=== PATIENT | female | born 2000 | race Caucasian/White ===

== ENCOUNTER 2025-05-23 13:20 | Outpatient (OUT) | payer OTHER, SELFPAY ==
--- OUTSIDE RECORDS SUMMARY | 2025-05-10 12:30 | XMS_ITS | Encounter Summary ---
Author Organization [facility] Address [address] [place] [address] Care Team Providers Care Highway Patrol Pilot Name Role Phone Bhanu Puentes DO Primary Care Provider [phone] Encounter Details DateTypeDepartmentCare Team (Latest Contact Info)Hasfqmewmbc55/16/2025 12:30 PM EDTAncillary Procedure [facility] [address] [place] [address] [place] [address] Missed menses; Positive urine test ([facility]) Social History Tobacco UseTypesPacks/DayYears UsedDateSmoking Tobacco: NeverSmokeless Tobacco: NeverAlcohol UseStandard Drinks/WeekCommentsYes0 (1 standard drink = 0.6 oz pure alcohol)[id number] Health LiteracyAnswerDate RecordedHow often do you need to have someone help you when you read instructions, pamphlets, or other written material from your doctor or pharmacy?Never11/02/2024Social Connection and Isolation PanelAnswerDate RecordedIn a typical week, how many times do you talk on the phone with family, friends, or neighbors?More than three times a week 11/02/2024How often do you get together with friends or relatives?Three times a week11/02/2024How often do you attend baptism or latter day services?1 to 4 times per year11/02/2024Do you belong to any clubs or organizations such as baptism groups, unions, fraternal or athletic groups, or school groups?No11/02/2024How often do you attend meetings of the clubs or organizations you belong to?Never 11/02/2024re you , , , , never , or living with a partner?Olgwplz2911/02/2024UDIT-CAnswerDate RecordedQ1: How often do you have a drink containing alcohol?2-4 times a month11/02/2024Q2: How many drinks containing alcohol do you have on a typical day when you are drinking?1 or Q3: How often do you have six or more drinks on one occasion?Never 11/02/2024Overall Financial Resource Strain (CARDIA)AnswerDate RecordedHow hard is it for you to pay for the very basics like food, housing, medical care, and heating?Not very hard11/02/2024PHQ-2AnswerDate RecordedPatient Health Questionnaire-2 Pejhl737[facility] [place] of Occupational Health - Occupational Stress QuestionnaireAnswerDate RecordedDo you feel stress - tense, restless, nervous, or anxious, or unable to sleep at night because yourmind is troubled all the time - these days?To some jtynkd4111/02/2024Exercise Vital Sign AnswerDate RecordedOn average, how many days per week do you engage in moderate to strenuous exercise (like a brisk walk)?2 days11/02/2024On average, how many minutes do you engage in exercise at this level?20 min11/02/2024Hunger Vital SignAnswerDate RecordedWithin the past 12 months, you worried that your food would run out before you got the money to buymore.Never true11/02/2024Within the past 12 months, the food you bought just didn't last and you didn't have money to get more.Never true11/02/2024PRAPARE - TransportationAnswerDate RecordedIn the past 12 months, has lack of transportation kept you from medical appointments or from getting medications?No11/02/2024In the past 12 months, has lack of transportation kept you from meetings, work, or from getting things needed for daily living?No11/02/2024Housing Stability Vital SignAnswerDate RecordedIn the last 12 months, was there a time when you were not able to pay the mortgage or rent on time?No11/02/2024In the past 12 months, how many times have you moved where you were living?004/10/2025At any time in the past 12 months, were you homeless or living in a usp (including now)?No11/02/2024 Estimated Date of LvwraqojOqmjtrcgGuo96/27/2026ased on last menstrual period of 03/14/2025Sex and Gender InformationValueDate RecordedSex Assigned at GvhfqDonoig95/18/2023 3:01 PM EDTLegal OtsZoktcm61/15/2023 6:48 PM EDTGender PgnigcuhHdwoej30/18/2023 3:01 PM EDTSexual OrientationNot on filedocumented as of this encounter Plan of Treatment DateTypeDepartmentCare Team (Latest Contact Info)Yxbnwvpgpbk81/19/2025 3:20 PM ESTRoutine [facility] [address] [place] [phone] Christiano Fuentes DO [address] [place], [place] [id number] 11/28/2025 3:00 PM EDTOffice Visit [facility] [address] [place] [address] Ludivina Diez DO [address] [place] [address] documented as of this encounter Procedures Procedure NamePriorityDate/TimeAssociated DiagnosisCommentsUS OB TRANSVAGINAL Tlzkyhk3705/10/2025 12:47 PM EDT Missed menses Positive urine test ([facility]) documented in this encounter Results * US OB transvaginal (05/10/2025 12:47 PM EDT)Anatomical RegionLaterality ModalityBodyUltrasoundSpecimen (Source)Anatomical Location / Laterality Collection Method / VolumeCollection TimeReceived Time05/10/2025 1:33 PM EDT Impressions 05/10/2025 2:03 PM EDT Findings consistent with a live intrauterine gestation, current sonographic age of 8 weeks and 1 days resulting in an estimated date of delivery of December 19, 2025. TRANSCRIBED BY: ? ELECTRONICALLY SIGNED BY: Fermin Bae MD Narrative 05/10/2025 2:03 PM EDT FINDINGS: A single intrauterine gestational sac is present. ??No subchorionic hemorrhage. ??A single pole is present. Normal heart rate at 179 beats per minute. ??Yolk sac also is seen. ?? Current sonographic age is 8 weeks and 1 days based on the crown-rump length measurement of 1.7 cm. ??Based on this age, current estimated date of delivery is December 19, 2025. ?? No pelvic fluid or adnexal mass present. ??Closed cervix. Right ovarian 3.5 x 4.5 x 4.5 cm cyst occupies much of the majority of the right ovary (presumed corpus luteum cyst) Procedure Note Fermin Bae MD - 05/10/2025 FINDINGS: A single intrauterine gestational sac is present. No subchorionichemorrhage. A single pole is present. Normal heart rate at179 beats per minute. Yolk sac also is seen. Current sonographic age is8 weeks and 1 days based on the crown-rump length measurement of 1.7 cm.Based on this age, current estimated date of delivery is December 19, 2025.No pelvic fluid or adnexal mass present. Closed cervix. Right ovarian 3.5 x 4.5 x 4.5 cm cyst occupies much of the majority of theright ovary (presumed corpus luteum cyst) IMPRESSION: Findings consistent with a live intrauterine gestation, currentsonographic age of 8 weeks and 1 days resulting in an estimated date ofdelivery of December 19, 2025. TRANSCRIBED BY: ELECTRONICALLY SIGNED BY: Fermin Bae MD Authorizing ProviderResult TypeResult StatusCorey Gina DOIMG OB US PROCEDURES Final Result documented in this encounter Visit Diagnoses Diagnosis Missed menses Positive urine test ([facility]) documented in this encounter Care Teams Team MemberRelationshipSpecialtyStart DateEnd Date Bhanu Puentes DO [address] [place] [address] PCP - GeneralFamily Medicine12/01/22documented as of this encounter
--- OUTSIDE RECORDS SUMMARY | 2025-05-10 13:00 | XMS_ITS | Encounter Summary ---
Author Organization [facility] Address [address] [place] [address] Care Team Providers Care Supervisor Lime Name Role Phone Bhanu Puentes DO Primary Care Provider [phone] Reason for Visit * ReasonCommentsAmenorrhea Encounter Details DateTypeDepartmentCare Team (Latest Contact Info)Snmvwauoqbm55/16/2025 1:00 PM EDTInitial [facility] [address] [place] [address] GA: 8w1d Social History Tobacco UseTypesPacks/DayYears UsedDateSmoking Tobacco: NeverSmokeless Tobacco: NeverAlcohol UseStandard Drinks/WeekCommentsYes0 (1 standard drink = 0.6 oz pure alcohol)[id number] Health LiteracyAnswerDate RecordedHow often do you need [...] times a week11/02/2024How often do you attend pentecostal or christianity services?1 to 4 times per year11/02/2024Do you belong to any clubs or organizations such as pentecostal groups, unions, fraternal or athletic groups, or school groups?No11/02/2024How often do you attend meetings of the clubs or organizations you belong to?Never 11/02/2024re you , , , , never , or living with a partner?Vmmjvdz3711/02/2024UDIT-CAnswerDate RecordedQ1: How often do you have a [...] and heating?Not very hard11/02/2024PHQ-2AnswerDate RecordedPatient Health Questionnaire-2 Xxugv629[facility] [place] of Occupational Health - Occupational Stress QuestionnaireAnswerDate RecordedDo you feel stress - tense, restless, nervous, or anxious, or unable to sleep at night because yourmind is troubled all the time - these days?To some dzzkpc5211/02/2024Exercise Vital Sign AnswerDate RecordedOn average, how many [...] times have you moved where you were living?t any time in the past 12 months, were you homeless or living in a half-way (including now)?No11/02/2024 Estimated Date of VadrscrfCbccjcjwQnm39/27/2026ased on last menstrual period of 03/14/2025Sex and Gender InformationValueDate RecordedSex Assigned at GmhmgXxdizp34/18/2023 3:01 PM EDTLegal CinOgkxfj13/15/2023 6:48 PM EDTGender MykyowldJilbby25/18/2023 3:01 PM EDTSexual OrientationNot on filedocumented as of this encounter Last Filed Vital Signs Vital SignReadingTime TakenCommentsBlood Njhpqsbn374/6005/10/2025 1:37 PM EDT Pulse--Temperature--Respiratory Rate--Oxygen Saturation--Inhaled Oxygen Concentration--Eviitk08.5 kg (175 lb 3.2 oz)05/10/2025 1:37 PM EDTHeight--Body Mass Index27.4404 4:11 PM EDTdocumented in this encounter Progress Notes * Amelia Steve - 05/10/2025 1:00 PM EDT Reason for Appointment: Patient ID: Pamella Solares is a 24 y.o. female who presents for Amenorrhea Patient presents today for a Nurse OB Intake appointment. Patient is 8w1d with a Estimated Date of Delivery: 12/19/25 OB History Para Term AB Living 2 1 1 SAB IAB Ectopic Multiple Live Births # Outcome Date GA Lbr Dwayne/2nd Weight Sex Type Anes PTL Lv 2 Current 1 Term CS-LTranv Obstetric Comments Pap smear 11/05/23 wnl Current Medications: has a current medication list which includes the following prescription(s): ondansetron odt. Medical History: Active Ambulatory Problems Diagnosis Date Noted Encounter for supervision of normal first , third trimester ([facility]) 11/02/2023 Myopia of both eyes 11/02/2023 Resolved Ambulatory Problems Diagnosis Date Noted No Resolved Ambulatory Problems Past Medical History: Diagnosis Date Seasonal allergies Family History[1] Social History Tobacco Use Smoking status: Never Smokeless tobacco: Never Substance Use Topics Alcohol use: Yes Comment: social Drug use: Never Surgical History[2] Allergies[3] Vitals: Estimated body mass index is 27.44 kg/m?? as calculated from the following: Height as of 11/02/24: 5' 7 . Weight as of this encounter: 175 lb 3.2 oz. BP: 106/60 Patient's last menstrual period was 03/14/2025. Assessment/Plan Diagnoses and all orders for this visit: Missed menses - Type and screen; Future - ABO/Rh; Future - CBC and differential - Hemoglobin A1c - RPR - Rubella antibody, IgG - Hepatitis B surface antigen - Hepatitis C antibody - HIV-1 and HIV-2 antibodies - Urine culture - POCT , urine manually resulted - POCT urinalysis dipstick manually resulted , unspecified gestational age ([facility]) - Type and screen; Future - ABO/Rh; Future - CBC and differential - Hemoglobin A1c - RPR - Rubella antibody, IgG - Hepatitis B surface antigen - Hepatitis C antibody - HIV-1 and HIV-2 antibodies - Rapid drug screen, urine; Future Encounter for supervision of normal first in first trimester ([facility]) - Rapid drug screen, urine; Future Nausea - ondansetron ODT (Zofran-ODT) 4 MG disintegrating tablet; Take 1 tablet (4 mg) by mouth every 6 (six) hours if needed for nausea or vomiting Nurse Note: OB Intake: Patient presents today for first OB visit. Patients history has been reviewed in great detail including any potential risks. Patient signed consent forms and patient desires testing in both trimesters. Patient currently has no complaints and has been advised to drink 6-8 glasses of water a day, eatno raw or undercooked meat, and stay away from [facility]. Patient has also been advised to not change litter boxes and eat 6 small meals a day. Patient has been consulted regarding the do's and don'ts ofpregnancy. Patient was given labs and all questions and concerns were answered. Patient isexperiencing nausea. Zofran sent to pharmacy. Follow Up: Patient is to return in 4 weeks for routine OB appointment. Follow Up: Patient is to have labs drawn at directed and return to office for initial OB appointment with provider. Patient may call office as needed with any concerns or questions. Nurse Visit Completed by: Amelia Steve [1] Family History Problem Relation Name Age of Onset No Known Problems Mother No Known Problems Father No Known Problems Sister 1 No Known Problems Daughter 1 [2] Past Surgical History: Procedure Laterality Date SECTION, CLASSIC 2021 SECTION, LOW TRANSVERSE 05/02/22 [3] No Known Allergies documented in this encounter Plan of Treatment DateTypeDepartmentCare Team (Latest Contact Info)Gddwmqfxwmv33/19/2025 3:20 PM ESTRoutine [facility] [address] [place] [address] Christiano Fuentes DO [address] [facility] [address] [place] [address] 11/28/2025 3:00 PM EDTOffice Visit [facility] [address] [place] [phone] Ludivina Diez, DO [address] [place] [address] NameTypePriorityAssociated DiagnosesOrder ScheduleType and screenLabRoutine Missed menses , unspecified gestational age ([facility]) Expected: 05/10/2025 (Approximate), Expires: 6ABO/RhLabRoutine Missed menses , unspecified gestational age ([facility]) Expected: 05/10/2025 (Approximate), Expires: 6CBC and differentialLab Routine Missed menses , unspecified gestational age ([facility]) Ordered: 05/10/2025Hemoglobin B7nEmuNccihwz Missed menses , unspecified gestational age ([facility]) Ordered: 05/10/2025RPRLabRoutine Missed menses , unspecified gestational age ([facility]) Ordered: 05/10/2025Rubella antibody, IgGLabRoutine Missed menses , unspecified gestational age ([facility]) Ordered: 05/10/2025Hepatitis B surface antigenLabRoutine Missed menses , unspecified gestational age ([facility]) Ordered: 05/10/2025Hepatitis C antibodyLabRoutine Missed menses , unspecified gestational age ([facility]) Ordered: 05/10/2025HIV-1 and HIV-2 antibodiesLabRoutine Missed menses , unspecified gestational age ([facility]) Ordered: 05/10/2025Urine cultureMicrobiologyRoutine Missed menses Ordered: 05/10/2025Rapid drug screen, urineLabRoutine , unspecified gestational age ([facility]) Encounter for supervision of normal first in first trimester ([facility]) Expected: 05/10/2025 (Approximate), Expires: 05/10/2026documented as of this encounter Procedures Procedure NamePriorityDate/TimeAssociated DiagnosisCommentsPOCT URINALYSIS AXWAHWSKUcgxhno74/16/2025 1:13 PM EDT Missed menses POCT , PRSDSVaohnls16/16/2025 1:12 PM EDT Missed menses documented in this encounter Results * POCT urinalysis dipstick manually resulted (05/10/2025 1:13 PM EDT)Component ValueRef RangeTest MethodAnalysis TimePerformed AtPathologist SignatureColor, UAYellowClarity, UAClearGlucose, UANegativeNegative - 2000(110) ++++ mg/dL Bilirubin, UANegativeNegative - 4(70) +++ mg/dLKetones, UANegativeNegative - 160(16) ++++ mg/dLSpec Grav, UA1.0151 - 1.03Blood, UANegativeNegative - 50 Leonardo/mcLpH, UA6.05 - 9Protein, UANegativeNegative - 2000(20) ++++ mg/dL Urobilinogen, UA2.00.2 - 12 mg/dLLeukocytes, UANegativeNegative - 500+++ Lindsey/mcLNitrite, UANegativeNegative - PositiveSpecimen (Source)Anatomical Location / LateralityCollection Method / VolumeCollection TimeReceived Time Urine05/10/2025 1:13 PM EDT Narrative Authorizing ProviderResult TypeResult StatusCorey Gina DOPOINT OF CARE TEST ENTER/EDIT ORDERABLESFinal Result * (ABNORMAL) POCT , urine manually resulted (05/10/2025 1:12 PM EDT) ComponentValueRef RangeTest MethodAnalysis TimePerformed AtPathologist SignaturePreg Test, UrPositiveNegativeSpecimen (Source)Anatomical Location / LateralityCollection Method / VolumeCollection TimeReceived TimeUrine 05/10/2025 1:12 PM EDT Narrative Authorizing ProviderResult TypeResult StatusCorey Gina DOPOINT OF CARE TEST ENTER/EDIT ORDERABLESFinal Result documented in this encounter Visit Diagnoses Diagnosis Missed menses , unspecified gestational age ([facility]) Encounter for supervision of normal first in first trimester ([facility]) Nausea Nausea alone documented in this encounter Care Teams Team MemberRelationshipSpecialtyStart DateEnd Date Bhanu Puentes DO [address] [place] [address] PCP - GeneralFamily Medicine12/01/22documented as of this encounter
--- OUTSIDE RECORDS SUMMARY | 2025-05-23 13:27 | XMS_ITS | Encounter Summary ---
Author Organization [facility] Address [address] [place] [address] Care Team Providers Care Porcelain Enameler Name Role Phone Bhanu Puentes DO Primary Care Provider [phone] Encounter Details DateTypeDepartmentCare Team (Latest Contact Info)Dfgbpmgyzqi90/27/2025Telephone [facility]YL[facility] [address] [place] [address] Tiesha Chua MA [address] [place] [address] Social History Tobacco UseTypesPacks/DayYears UsedDateSmoking Tobacco: NeverSmokeless Tobacco: NeverAlcohol UseStandard Drinks/WeekCommentsYes0 (1 standard drink = 0.6 oz pure alcohol)[id number] Health LiteracyAnswerDate RecordedHow often do you need [...] times a week11/02/2024How often do you attend episcopal or bahai services?1 to 4 times per year11/02/2024Do you belong to any clubs or organizations such as episcopal groups, unions, fraternal or athletic groups, or school groups?No11/02/2024How often do you attend meetings of the clubs or organizations you belong to?Never 11/02/2024re you , , , , never , or living with a partner?Ejkcuao0311/02/2024UDIT-CAnswerDate RecordedQ1: How often do you have a [...] and heating?Not very hard11/02/2024PHQ-2AnswerDate RecordedPatient Health Questionnaire-2 Txips226Fin[facility] [place] of Occupational Health - Occupational Stress QuestionnaireAnswerDate RecordedDo you feel stress - tense, restless, nervous, or anxious, or unable to sleep at night because yourmind is troubled all the time - these days?To some rsticw8611/02/2024Exercise Vital Sign AnswerDate RecordedOn average, how many [...] were you homeless or living in a senior living (including now)?No11/02/2024 Estimated Date of YglamwzmBfdpxwshZjd72/27/2026ased on last menstrual period of 03/14/2025Sex and Gender InformationValueDate RecordedSex Assigned at ClalhWuadrk46/18/2023 3:01 PM EDTLegal LheNmntdz69/15/2023 6:48 PM EDTGender RzbebeysDpovyo24/18/2023 3:01 PM EDTSexual OrientationNot on filedocumented as of this encounter Miscellaneous Notes * Telephone Encounter - Tiesha Chua MA - 05/21/2025 12:02 PM EDT Pt called zofran is not helping with nausea/vomiting. Pt does not want to take the promethazine dueto drowsiness. Reglan was sent to pharmacy and advised to see how that one works. PVU. And pt states she is constipated and pt was advised to take Metamucil/Miralex along w/a Colace. To follow directions as directed. PVU. documented in this encounter Plan of Treatment DateTypeDepartmentCare Team (Latest Contact Info)Jsnobxcenjm29/19/2025 3:20 PM ESTRoutine [facility] [address] [place] [address] Christiano Fuentes DO [address] [place] [address] 11/28/2025 3:00 PM EDTOffice Visit [facility] [place] [facility] [address] [place] [address] Ludivina Diez DO [address] [place], [place] [id number] documented as of this encounter Visit Diagnoses Diagnosis Nausea Nausea alone documented in this encounter Care Teams Team MemberRelationshipSpecialtyStart DateEnd Date Bhanu Puentes DO [address] [facility] [address] [place] [id number] PCP - GeneralFamily Medicine12/01/22documented as of this encounter
--- OUTSIDE RECORDS SUMMARY | 2025-05-23 13:27 | XMS_ITS | Clinical Summary ---
Author Organization [facility] Healthcare Address [address] [place] [address] Care Team Providers Care Major Assembler Name Role Phone Bhanu Puentes DO Primary Care Provider [phone] Allergies No known active allergies Medications MedicationSigDispense QuantityRefillsLast FilledStart DateEnd DateStatus ondansetron ODT (Zofran-ODT) 4 MG disintegrating tablet Indications:NauseaTake 1 tablet (4 mg) by mouth every 6 (six) hours if needed for nausea or vomiting 30 tablet 515Active metoclopramide (Reglan) 10 MG tablet Indications:NauseaTake 1 tablet (10 mg) by mouth in the morning and 1 tablet (10 mg) at noon and 1 tablet (10 mg) in the evening. Take before meals. Take 1 tablet by mouth 30 minutes prior to meals 3 times daily as needed for nausea. 90 tablet 515Active Active Problems ProblemNoted DateDiagnosed DateEncounter for supervision of normal first , third trimester ([facility])11/02/2023Myopia of both eyes11/02/2023 Estimated Date of FnyfsbgfYwdvufilElw20/27/2026ased on last menstrual period of 03/14/2025 Encounters DateTypeDepartmentCare AdjsDwsjmdctpvt57/27/2025Telephone PAUL ROBERTO [address] [place] [phone] Tiesha Chua MA 05/10/2025 1:00 PM EDTInitial NOMS [place] [address] [place]: 8w1d05/10/2025 12:30 PM EDTAncillary Procedure [facility] Lauren [facility] [address] [place] [address] [place] [address] Missed menses; Positive urine test ([facility])from Last 3 Months Immunizations ImmunizationAdministration DatesNext BkhKNiF2103/20/2004DTaP, Unspecified 03/22/2002,05/09/1999,02/27/1999,1998HPV, Dhhcwvdtdrfg26/03/2011, 03/26/2011Hep A, ped/adol, 2 dose03/26/2011Hep B, Adolescent or Pediatric 1998HiB, hqeoojammbp52/28/2002,05/09/1999Hib / Hep B002/27/1999,1998 IPV03/20/2004,02/27/1999,1998Influenza, injectable, MDCK, preservative free, /07/2018Influenza, injectable, quadrivalent, preservative free06/17/2020,04/28/2019,04/02/2018Influenza, seasonal, chdqfkyxqd54/03/2011, 05/15/2009Influenza, seasonal, injectable, preservative free04/30/2010MMR 03/26/2011,03/20/2004,08/15/1999Meningococcal QQO6M0903/26/2011Meningococcal MCV4P 04/09/2016Meningococcal FBRZ976Novel ztgbyfnvn-V9H3-38, preservative-free06/27/2009OPV08/15/1999Tdap04/14/2022,03/26/2011Varicella 03/26/2011,08/15/1999 Family History Medical HistoryRelationNameCommentsNo Known UzpdbstoCsfdcsxo5Sd Known Problems FatherNo Known ProblemsMotherNo Known QdoevzmoMgemcc7FlrxggofWgnuZikcxtLapyryez Tflwmtuj6OflihKnnfjyUzksaZvdkbtAymhxQiegvi2Ggjdp Social History Tobacco UseTypesPacks/DayYears UsedDateSmoking Tobacco: NeverSmokeless Tobacco: Never Tobacco Cessation:Counseling Given: Yes Alcohol UseStandard Drinks/WeekCommentsYes0 (1 standard drink = 0.6 oz pure alcohol)[id number] Health LiteracyAnswerDate RecordedHow often do you need [...] times a week11/02/2024How often do you attend zoroastrian or adventism services?1 to 4 times per year11/02/2024Do you belong to any clubs or organizations such as zoroastrian groups, unions, fraternal or athletic groups, or school groups?No11/02/2024How often do you attend meetings of the clubs or organizations you belong to?Never 11/02/2024re you , , , , never , or living with a partner?Ntonpno4811/02/2024UDIT-CAnswerDate RecordedQ1: How often do you have a [...] and heating?Not very hard11/02/2024PHQ-2AnswerDate RecordedPatient Health Questionnaire-2 Aukpy224Finlif[facility] - Occupational Stress QuestionnaireAnswerDate RecordedDo you feel stress - tense, restless, nervous, or anxious, or unable to sleep at night because yourmind is troubled all the time - these days?To some fzqylo7411/02/2024Exercise Vital Sign AnswerDate RecordedOn average, how many [...] were you homeless or living in a mcfp (including now)?No11/02/2024 Estimated Date of MuwgkpbdHmomcqkyXhf67/27/2026ased on last menstrual period of 03/14/2025Sex and Gender InformationValueDate RecordedSex Assigned at ZsoalQosgxw42/18/2023 3:01 PM EDTLegal JjmSwbhbo21/15/2023 6:48 PM EDTGender SynknuqjTbiglj27/18/2023 3:01 PM EDTSexual OrientationNot on file Last Filed Vital Signs Vital SignReadingTime TakenCommentsBlood Tqklqcel802/6010 1:37 PM EDT Ebrkz44315/10/2025 4:11 PM XPDKjykhbjmemn05.6 ??C (97.8 ??F)11/02/2024 4:11 PM EDTRespiratory Rate--Oxygen Rzzmaufobn92%11/02/2024 4:11 PM EDTInhaled Oxygen Concentration--Zryuif04.5 kg (175 lb 3.2 oz)05/10/2025 1:37 PM GZDVfjmvi427.2 cm (5' 7 )11/02/2024 4:11 PM EDTBody Mass Index27.44011/02/2024 4:11 PM EDT Plan of Treatment DateTypeDepartmentCare Team (Latest Contact Info)Judqjnpfxan17/19/2025 3:20 PM ESTRoutine NOMBurak [place] [facility] [address] [place] [phone] Christiano Fuentes DO [address] [place] [address] 11/28/2025 3:00 PM EDTOffice Visit NOMBurak VELEZN [address] [place] [address] Ludivina Diez DO [address] [place], [place] [id number] Health MaintenanceDue DateLast DoneCommentsVaricella Vaccines (2 of 2 - 2-dose childhood series), 08/15/1999HPV Vaccines (3 - 2-dose series), 03/26/2011Hepatitis A Vaccines (2 of 2 - 2-dose series)COVID-19 Vaccine ( season)2025 Influenza Vaccine (#1)/, 04/28/2019, 04/02/2018, Additional history existsDTaP/Tdap/Td Vaccines (8 - Td or Tdap)/, 03/26/2011, 03/20/2004, Additional history existsHepatitis B VaccinesCompleted 02/27/1999, 1998, 1998HIB YnyvhzylMamjujqwk17/28/2002, 05/09/1999, 02/27/1999, Additional history existsIPV RpkklietStahgmzws96/26/2004, 08/15/1999, 02/27/1999, Additional history existsMMR VaccinesCompleted 03/26/2011, 03/20/2004, 08/15/1999Meningococcal VaccineAged Out04/09/2016, 03/26/2011No longer eligible based on patient's age to complete this topic Meningococcal B VaccineAged OutNo longer eligible based on patient's age to complete this topicPneumococcal Vaccine: Pediatrics (0 to 5 Years) and At-Risk Patients (6 to 64 Years)Aged OutNo longer eligible based on patient's age to complete this topicRotavirus VaccinesAged OutNo longer eligible based on patient's age to complete this topic Procedures Procedure NamePriorityDate/TimeAssociated DiagnosisCommentsPOCT URINALYSIS TNTWINBRAyjxsqv84/16/2025 1:13 PM EDT Missed menses POCT , CZBLWRipbhig03/16/2025 1:12 PM EDT Missed menses OB SLWXPCKMGNWEHnyhsda31/16/2025 12:47 PM EDT Missed menses Positive urine test ([facility]) from Last 3 Months Results * POCT urinalysis dipstick manually resulted [...] OF CARE TEST ENTER/EDIT ORDERABLESFinal Result * US OB transvaginal (05/10/2025 12:47 PM [...] Gina DOIMG OB US PROCEDURES Final Result from Last 3 Months Insurance Care Teams Team MemberRelationshipSpecialtyStart DateEnd Date Bhanu Puentes, [address] [facility] [address] [place] [address] PCP - GeneralFamily Medicine12/01/22
[2025-05-23 14:33] LABS: Hematocrit 39.2 % (36.0-48.0); Hemoglobin 13.2 g/dL (12.0-16.0); Immature Granulocytes Abs Auto 0.03 10^3/uL (0.00-0.03); Immature Granulocytes Pct Auto 0.3 % (0.0-0.5); Lymphocytes Absolute Auto 2.3 10^3/uL (1.2-3.8); Mean Corpuscular HGB Conc 33.7 g/dL (29.9-35.2); Mean Corpuscular Hemoglobin 30.6 pg (26.7-34.0); Mean Corpuscular Volume 90.7 fL (81.0-99.0); Platelet Count 332 10^3/uL (150-450); Red Blood Count 4.32 10^6/uL (4.20-5.40); White Blood Count 9.1 10^3/uL (4.0-11.0)
[2025-05-23 14:55] LABS: Cannabinoid Screen Urine NEGATIVE (NEGATIVE); Methamphetamines Screen Urine NEGATIVE (NEGATIVE); Tricyclic Antidepressant Urine NEGATIVE (NEGATIVE)
[2025-05-24 08:09] LABS: Rubella Antibodies, IgG 3.72 index (Immune >0.99)
[2025-05-24 12:08] LABS: Rapid Plasma Reagin, Quant Non Reactive titer (NonRea<1:1)
== END 2025-05-23 13:21 | disposition home or self-care (01) ==
LOC: LAB 13:26
PROVIDERS: PCP Family Medicine; Visit Provider Obstetrics & Gynecology
DX: Z34.01 Encounter for supervision of normal first pregnancy, first trimester (principal); N92.6 Irregular menstruation, unspecified
CPT/HCPCS: 36415; 80307; 83036; 85025; 86592; 86762; 86803; 86850; 86900; 86901; 87086; 87340; 87389